=== PATIENT | female | born 1960 | race Caucasian/White ===

== ENCOUNTER 2017-06-30 22:59 | Observation (INO) | payer BC ==
[2017-06-30 23:26] LABS: Hematocrit 40 % (35-47); Hemoglobin 13.5 g/dl (12.0-16.0); Mean Corpuscular HGB Conc 33 g/dl (31-36); Mean Corpuscular Hemoglobin 31 pg (27-31); Mean Corpuscular Volume 92 fL (80-97); Mean Platelet Volume 9 um3 (7.4-10.4); Red Cell Distribution Width 14 % (10.5-15); White Blood Count 12.1 10^3/ul (3.5-10.8)
[2017-06-30 23:38] LABS: Alcohol < 10 mg/dL (<10)
[2017-06-30 23:40] LABS: ALT 14 U/L (7-52); AST 19 U/L (13-39); Albumin 3.6 g/dL (3.2-5.2); Alkaline Phosphatase 108 U/L (34-104); Anion Gap 8 mmol/L (2-11); BUN/Creatinine Ratio 17.7 (8-20); Blood Urea Nitrogen 17 mg/dL (6-24); CO2 Carbon Dioxide 24 mmol/L (22-32); Calcium 9.3 mg/dL (8.6-10.3); Chloride 105 mmol/L (101-111); EGFR Non-African American 59.9 (>60); Glucose 155 mg/dL (70-100); Potassium 4.1 mmol/L (3.5-5.0); Sodium 137 mmol/L (133-145); Total Protein 6.6 g/dL (6.4-8.9)
[2017-06-30 23:42] LABS: Troponin I 0.03 ng/mL (<0.04)
[2017-06-30] MEDS ORDERED: Thiamine IV* 100 MG/ML 2 ML VIAL IV ONE (23:53)
[2017-07-01 00:31] LABS: C Reactive Protein 4.15 mg/L (< 5.00)
[2017-07-01] MEDS ORDERED: Albuterol 2.5 MG/3 ML NEB.SOL* (0.083%) INH PRN (01:25)
[2017-07-01] MEDS ORDERED: LORazepam TAB(*) 0.5 MG PO PRN (01:27)
[2017-07-01] MEDS ORDERED: Piperacillin/Tazobac ADVAN(*) 3.375 GM in NS 0.9% 100 ML* 100 ML IVPB ONE (01:32)
[2017-07-01] MEDS: Furosemide IV* 10 MG/ML VIAL (40 MG) IV SCH ×2 (01:41→08:06)
[2017-07-01] MEDS ORDERED: Aspirin Low Dose CHEW TAB* 81 MG PO ONE (01:49)
[2017-07-01] MEDS ORDERED: Zosyn per Pharmacy* NOTE FOLLOW UP SCH (02:00)
[2017-07-01] MEDS ORDERED: Iodixanol* (CONTRAST) 320 MG/ML 100 ML SDV IV ONE (03:13)
[2017-07-01 04:26] LABS: Benzodiazepine Urine Screen None Detected (None Detect)
--- NOTE | 2017-07-01 04:30 | HP ---
ADDENDUM NOW INCLUDED ON THIS REPORT CC: Dr. Chavez, Cardiology in [place]; [facility] * HISTORY AND PHYSICAL: DATE OF ADMISSION: 07/01/17 PRIMARY CARE PROVIDER: Provider from [facility]. The patient does not remember the name. CHIEF COMPLAINT: Shortness of breath. HISTORY OF PRESENT ILLNESS: Please note that the patient is a very poor historian, has complained that she has aphasia due to "mini-stroke." To me it appears more related to psychologic problem. She has a scuttle like voice and usually answers in one word sentences. The patient stated that she had been having shortness of breath and gasping for air "for the past two and a half weeks." She could not really explain why she is here today and did not come earlier. She states that she gained approximately 15 pounds. She noted that she has severe coronary artery disease and CHF and she usually is short of breath with minimal exertion. For the past two and a half weeks, she also had been having right-sided pleuritic chest pain. She thought that she was actually in the hospital in [place] where she usually goes to and then she was somewhat upset when she noted that the ambulance brought her to [place]. She stated that she is in the process of moving to [place] and her is right now on the way to their apartment to move their belongings over to [place]. She also stated that her CPAP mask was broken and she had a no CPAP for the past several days, which also made her "not being able to breathe at night." The patient was noted to be not hypoxic, but significantly dyspneic. On CT of the chest, has fluffy infiltrates in the entire left lung and right lower lung that could be either atypical infection or pneumonia. She is going to be placed on overnight observation. PAST MEDICAL HISTORY: Very limited due to the patient being not a great historian. Also, I am in the process of trying to obtain medical records from [facility]. 1. The patient stated that she has a pacemaker and the phlebotomy support tech who is taking care of her cardiac issues is Dr. Chavez from [place]. 2. The patient also stated that she has a history of coronary artery disease and her heart is "very bad." 3. History of coronary artery bypass grafting x3 in 2014 in [place]. 4. History of hypertension. 5. Dyslipidemia. 6. Obstructive sleep apnea. 7. From the patient's psychiatric history in 2007, she was hospitalized and was diagnosed with schizophrenia as well as psychosis. The patient has a history of PTSD and dissociative identity disorder. The patient has a history of remote suicidal attempts. PAST SURGICAL HISTORY: The patient also has a history of status post hysterectomy remotely. MEDICATIONS: Include "blood pressure pill." Furosemide, which she thinks she takes 40 mg daily, but she is not sure and a medication that starts with "juan" for anxiety on as needed basis. ALLERGIES: No known drug allergies. FAMILY HISTORY: Positive for possible heart disease, but her mother and her father in their 50s and the patient really does not know their medical problems. SOCIAL HISTORY: The patient lives with her . She has history of smoking two packs per day and she quit 6 years. She has a history of 60-pack year smoking. She denies any alcohol or drug use, but she has a history of remote alcoholism. REVIEW OF SYSTEMS: Please see history of present illness. In addition to the above mentioned, the patient stated that her legs get swollen when she walks a lot and then it gets better at night. Her symptoms of right-sided pleuritic chest pain as well as shortness of breath and paroxysmal nocturnal dyspnea had been ongoing for two and a half weeks that coincides with approximately 15- pound weight gain. She denies any productive cough. She denies any fevers. All the remaining 12 systems were reviewed with the patient, who once again is a poor and not reliable historian and were otherwise negative. PHYSICAL EXAMINATION GENERAL: The patient is a very pleasant 57-year-old female, who is in no acute distress. The patient is alert, awake and oriented x3, once again is a very poor historian. VITAL SIGNS: Blood pressure of 152/93, heart rate of 88 and regular, respiratory rate 20, oxygen saturation 96% on 2 L of oxygen nasal cannula, temperature of 97.4. HEENT: Head: Atraumatic, normocephalic. Eyes: Pupils are equal, reactive to light and accommodation. Oropharynx clear. Mucosa moist. NECK: Supple. No JVD, no bruits bilaterally. RESPIRATORY: Dry crackles in entire left lung and right lower lobe. No wheezes , no rhonchi. ABDOMEN: Soft and nontender. Bowel sounds are present in all 4 quadrants. EXTREMITIES: There is trace bilateral ankle edema. Pulses are 2+ bilaterally. No clubbing or cyanosis. NEURO EVALUATION: Speech clear, but "scuttle like." Cranial nerves II through XII are grossly intact. Motor strength is 5/5 bilaterally. PSYCHIATRIC EVALUATION: Oriented x3 with no evidence of anxiety or depression. DIAGNOSTIC STUDIES/LAB DATA: Show D-dimer of 597. White blood cell count of 12.1, hemoglobin of 13.5, hematocrit of 40, and platelets of 307. Sodium was 137, potassium 4.1, chloride 105, carbon dioxide 24, BUN 17, creatinine 0.96. Liver function tests were unremarkable. Brain natriuretic peptide was 691. C- reactive protein was 4.1. Troponin of 0.03. Procalcitonin level is pending at the time of dictation. The patient's brain CT was grossly unremarkable. Chest CT I reviewed by myself and once again has ground-glass opacities in most of the left lung and right lower lung. The official report is still pending. The patient's EKG is pending at the time of dictation. ASSESSMENT AND PLAN: 1. Dyspnea for two and a half weeks in a patient with a history of congestive heart failure, who also had weight gain. She is on diuretics at home. The patient has somewhat nonspecific ground-glass opacities in bilateral lungs, but I suspect this is probably due to congestive heart failure. Unfortunately, we do not have the medical records from [facility] at this point, which I requested. At this point, the patient is going to be treated for congestive heart failure with Lasix 40 mg on a daily basis. Daily weights are going to be also obtained. I will obtain transthoracic echocardiogram in the morning. 2. In regards to the possibility of an infectious process, the patient's CRP is rather low. Procalcitonin level is pending. For the time being, I will treat the patient empirically with Zosyn. If her procalcitonin level is negative, Zosyn should be discontinued. Flu test is also pending at the time of dictation. 3. In regards to the patient's obstructive sleep apnea, the patient is going to be placed on CPAP at nightly in the hospital. 4. The patient has history of anxiety and I am going to place her on Ativan on a p.r.n. basis. Unfortunately, I am not sure which medication she is taking at home and I will ask nursing to confirm medication reconciliation in the morning when the patient's pharmacy is open. 5. The patient's code status is full and her surrogate is her . 6. For DVT prophylaxis, the patient is going to be placed on heparin subcutaneously. TIME SPENT: Approximately 75 minutes were spent on the admission of this patient, more than half that time was spent [id number] with the patient during the interview and physical exam. ADDENDUM: Please note that the imaging certified professional ergonomist called and corrected the patient's review of the CT scan of the brain, which shows now left frontoparietal small subacute CVA. Due to that, the patient will be continued on baby aspirin daily. She also is going to be placed on a cardiac diet. Physical therapy is going to be assessing the patient in the morning. I will also ask occupational therapy and neurology consult to see the patient in consultation. A transthoracic echocardiogram is going to be obtained with a bubble study. The patient is also going to be placed on neuro checks. So far, the patient's only neurological deficit is change in speech. No other abnormalities were noted. [id number]/[facility] #: [id number]/[facility] #: [id number] SHAWNA
--- NOTE | 2017-07-01 05:27 | HP ---
HISTORY AND PHYSICAL: ADDENDUM: Please note that the imaging called and corrected the patient' s review of the CT scan of the brain, which shows now left frontoparietal small subacute CVA. Due to that, the patient, before making the diagnosis placed on baby aspirin daily, which is going to be continued. She also is going to be placed on a cardiac diet. Physical therapy is going to be assessing the patient in the morning. I will also ask occupational therapy and neurology consult to see the patient in consultation. A transthoracic echocardiogram is going to be obtained with a bubble study. The patient is also going to be placed on neuro checks. So far, the patient's only neurological deficit is change in speech. No other abnormalities were noted. [id number]/[facility] #: [id number] SHAWNA
[2017-07-01] MEDS: Heparin VIAL(*) 5000 UNITS/ML VIAL (FIVE THOUSAND) SUBCUT SCH ×3 (06:11→21:55)
[2017-07-01 06:15] LABS: HDL Cholesterol 60.3 mg/dL
[2017-07-01 06:17] LABS: Troponin I 0.03 ng/mL (<0.04)
--- NOTE | 2017-07-01 07:47 | RAD ---
HISTORY: Dyspnea, chest pain COMPARISONS: April 29, 2014 VIEWS: 1: frontal portable view of the chest at 11:21 PM. The patient is obliqued to the left. FINDINGS: LINES AND TUBES: The left-sided pacemaker is noted CARDIOMEDIASTINAL SILHOUETTE: The cardiomediastinal silhouette is normal for portable technique. PLEURA: The costophrenic angles are sharp. No pleural abnormalities are noted. LUNG PARENCHYMA: There is patchy alveolar opacification of the left mid and lower lung field and right lower lung field ABDOMEN: The upper abdomen is clear. There is no subphrenic gas. BONES AND SOFT TISSUES: No bone or soft tissue abnormalities are noted. IMPRESSION: PATCHY BILATERAL CONSOLIDATION. RECOMMEND FOLLOW-UP UNTIL RESOLUTION TO EXCLUDE UNDERLYING PULMONARY PARENCHYMAL PATHOLOGY.
--- NOTE | 2017-07-01 07:51 | RAD ---
HISTORY: Speech difficulty COMPARISONS: April 17, 2007 TECHNIQUE: Multiple contiguous axial CT scans were obtained of the head without intravenous contrast. FINDINGS: HEMORRHAGE/INFARCT: There is focal hypoattenuation of the left temporoparietal. Elsewhere, there is no hemorrhage or acute infarct. Cortex and subcortical white matter consistent with subacute nonhemorrhagic infarct MASSES/SHIFT: There is no mass or shift. EXTRA-AXIAL SPACES: There are no extra-axial fluid collections. SULCI AND VENTRICLES: The sulci and ventricles are normal in size and position for the patient's stated age. CEREBRUM: As noted above, there is hypoattenuation in a cytotoxic edema pattern of the left parietal lobe extending into the left posterior temporal lobe consistent with subacute nonhemorrhagic infarct. BRAINSTEM: There are no focal parenchymal abnormalities. CEREBELLUM: There are no focal parenchymal abnormalities. VESSELS: The vessels are grossly normal. PARANASAL SINUSES: The paranasal sinuses are clear. ORBITS: The orbits are unremarkable. BONES AND SOFT TISSUE: No bone or soft tissue abnormalities are noted. OTHER: None IMPRESSION: LEFT TEMPOROPARIETAL SUBACUTE NONHEMORRHAGIC INFARCT. PRELIMINARY FINDINGS WERE COMMUNICATED TO DR. PRICE BY DR. BOYD AT APPROXIMATELY 1:50 AM ON JULY 01, 2017
--- NOTE | 2017-07-01 07:55 | RAD ---
HISTORY: Dyspnea, abnormal chest x-ray COMPARISONS: Chest x-ray dated June 30, 2017, CT dated October 06, 2005 TECHNIQUE: Multiple contiguous axial CT scans of the chest were obtained without intravenous contrast. Coronal and sagittal multiplanar reformations are also submitted for review. FINDINGS: The study is limited by the lack of intravenous contrast. This limits evaluation of the solid organs and vasculature. NECK AND THYROID: There is a 1.8 cm right thyroid nodule. CHEST WALL: There is no lower cervical, axillary, or supraclavicular lymphadenopathy by size criteria. No left-sided pacemaker is noted. HEART AND PERICARDIUM: Coronary and valvular cardiac calcifications are noted. AORTA AND PULMONARY VASCULATURE: There is calcification of the thoracic aorta. The pulmonary vasculature is unremarkable. MEDIASTINUM: There is no mediastinal lymphadenopathy by size criteria. SELINA: There is no hilar lymphadenopathy by size criteria. AIRWAY AND ESOPHAGUS: The airway is unremarkable, without endobronchial filling defect. The esophagus is grossly normal. LUNG PARENCHYMA: There is patchy ground glass opacification throughout the left lung and within the right lower lobe with patchy nonsolid nodular groundglass opacification within the right upper and middle lobe. PLEURA: There is a small right pleural effusion UPPER ABDOMEN: There are stable low-attenuation hepatic parenchymal lesions most consistent with hepatic cysts. BONES AND SOFT TISSUES: Degenerative changes are noted. Patient is status post median sternotomy. OTHER: None. IMPRESSION: 1. DIFFUSE AIRSPACE DISEASE THROUGHOUT THE LEFT LUNG AND RIGHT LOWER LOBE, AND TO LESSER EXTENT WITHIN THE RIGHT MIDDLE AND UPPER LOBE. RECOMMEND FOLLOW-UP UNTIL RESOLUTION TO EXCLUDE UNDERLYING PULMONARY PARENCHYMAL PATHOLOGY. 2. SMALL RIGHT PLEURAL EFFUSION. 3. ATHEROSCLEROSIS. 4. RIGHT THYROID NODULE. RECOMMEND CORRELATION WITH DEDICATED IMAGING OF THE THYROID IN THE NONACUTE SETTING.
--- NOTE | 2017-07-01 08:18 | RAD ---
HISTORY: Shortness of breath COMPARISONS: Noncontrast CT chest dated July 01, 2017 TECHNIQUE: Multiple contiguous axial CT scans of the chest were obtained after the administration of nonionic intravenous contrast, timed to the pulmonary arterial phase of contrast enhancement.. Coronal and sagittal multiplanar reformations are also submitted for review. FINDINGS: NECK AND THYROID: Again noted is a right thyroid nodule. CHEST WALL: There is no lower cervical, axillary, or supraclavicular lymphadenopathy by size criteria. A left-sided pacemaker is noted. HEART AND PERICARDIUM: The heart is unremarkable. AORTA AND PULMONARY VASCULATURE: There is no pulmonary arterial filling defect to suggest pulmonary embolism. There is no linear filling defect within the aorta to suggest aortic dissection. There is atherosclerosis of the thoracic aorta. MEDIASTINUM: There is no mediastinal lymphadenopathy by size criteria. SELINA: There is no hilar lymphadenopathy by size criteria. AIRWAY AND ESOPHAGUS: The airway is unremarkable, without endobronchial filling defect. The esophagus is grossly normal. LUNG PARENCHYMA: Again noted is diffuse ground less opacification of the left lung and right lower lobe with more focal nonsolid nodular groundglass opacification of the right upper middle lobe. PLEURA: There is a small right pleural effusion. UPPER ABDOMEN: Again noted are low attenuation hepatic parenchymal lesions most consistent with cysts. BONES AND SOFT TISSUES: The patient is status post median sternotomy. Degenerative changes are noted. OTHER: None. IMPRESSION: 1. NO PULMONARY ARTERIAL FILLING DEFECT TO SUGGEST PULMONARY EMBOLISM. 2. AGAIN NOTED IS BILATERAL AIRSPACE DISEASE. RECOMMEND FOLLOW-UP UNTIL RESOLUTION TO EXCLUDE UNDERLYING PULMONARY PARENCHYMAL PATHOLOGY. 3. SMALL RIGHT PLEURAL EFFUSION. 4. RIGHT THYROID NODULE
[2017-07-01] MEDS ORDERED: Aspirin Low Dose CHEW TAB* 81 MG PO SCH (09:00)
--- NOTE | 2017-07-01 11:31 | PN ---
Subjective Date of Service: 07/01/17 Interval History: Ms. Oviedo states feeling better since arrival. She attributes this to having oxygen and a working CPAP machine. She states that her home CPAP machine has been broken for several weeks but that she believes that a new machine is to be delivered early next week. She also notes difficulty in finding words and communicating which started the weekend after Thanksgiving and was associated with a sharp headache to the left side of her head. She reports having aphasia and difficulty speaking in the past which seems to have been related to previous stroke. She describes a complicated cardiac history including CABG at [place] and numberous heart attacks. She says that she does not have schizophrenia but has borderline personality disorder, agoraphobia, and depression. Objective Active Medications: Acetaminophen (Tylenol Tab*) 650 mg PO Q4H PRN Albuterol (Ventolin 2.5 Mg/3 Ml Neb.Rin*) 2.5 mg INH [id number] AWAKE PRN Aspirin (Aspirin Low Dose Tab*) 81 mg PO DAILY SHAYAN Furosemide (Lasix Iv*) 40 mg IV DAILY SHAYAN Heparin Sodium (Porcine) (Heparin Vial(*)) 5,000 units SUBCUT Q8HR SHAYAN Lorazepam (Ativan Tab(*)) 0.5 mg PO Q6H PRN Vital Signs: Temp Pulse Resp BP Pulse Ox 97.5 F 76 16 137/70 98 07/01/17 07:58 07/01/17 07:58 07/01/17 07:58 07/01/17 07:58 07/01/17 07:58 Oxygen Devices in Use Now: Nasal Cannula, CPAP Appearance: Female sitting up in bed in NAD Eyes: No Scleral Icterus Ears/Nose/Mouth/Throat: Mucous Membranes Moist Neck: Trachea Midline Respiratory: Symmetrical Chest Expansion and Respiratory Effort, Clear to Auscultation Cardiovascular: NL Sounds; No Murmurs; No JVD, No Edema Abdominal: NL Sounds; No Tenderness; No Distention Lymphatic: No Cervical Adenopathy Extremities: No Edema Skin: No Rash or Ulcers Neurological: Alert and Oriented x 3, NL Muscle Strength and Tone Nutrition: Taking PO's Result Diagrams: 06/30/17 23:14 06/30/17 23:14 Microbiology and Other Data: . Assess/Plan/Problems-Billing Assessment: Ms. Oviedo is a 57 yo female with an unclear PMH of schizophrenia, psychosis, PTSD, and dissociative identify disorder with unconfirmed self-report of CAD, pacemaker, HTN, MENG who was admitted on 06/30/17 with shortness of breath found to have a subacute left temporoparietal CVA. - Patient Problems (1) SOB (shortness of breath) Comment: - CTA chest with diffuse, patchy airspace disease. No pulmonary embolism. - Minimal leukocytosis without fever or cough. CRP 4 and procalcitonin negative. Do not suspect pneumonia, antibiotics discontinued. - Echo shows EF 25-30%, unknown baseline. ? CHF, continue lasix. (2) CVA (cerebral vascular accident) Comment: - Patient reports word finding difficulties which are new. - Subacute CVA, left temporoparietal region. - Appreciate neurology consult. - Continue aspirin 325mg. Start atorvastatin. - CTA head and neck to be completed when patient can have contrast dye (had CTA chest on admission). MRI pending (pacemaker info on chart). - ? cardioembolic source given severely enlarged left atrium, continue telemetry. No PFO observed on echo. - Continue PT/OT/ST. (3) CHF (congestive heart failure) Comment: - EF 25-30% today with multiple regional wall motion abnormalities, consistent with reported history of CABG and multiple MIs. - Attempting to obtain records from [place] and [facility]. - Continue lasix for now. (4) CAD (coronary artery disease) Comment: - Asymptomatic, Trops negative. - Hx CABG, attempting to obtain records from [facility]. (5) Hypertension Comment: - BP 130-150s - Continue lasix, resume lisinopril. (6) MENG (obstructive sleep apnea) Comment: - Will need to confirm that patient has CPAP at home prior to discharge. (7) DVT prophylaxis Current Visit: Yes Status: Acute Code(s): [id number] - SNOMED Code(s): 576249849 Comment: - Heparin SQ. (8) Full code status Comment: Status and Disposition: OBV. Anticipate discharge to home when medically stable.
--- NOTE | 2017-07-01 11:42 | ECHO ---
Amended Report Patient: ALEC JUSITCE [facility] Rec#: [id number] : 1960 Date: 07/01/2017 Age: 57y Height: 157.5 cm / 62.0 in Weight: 68 kg / 149.9 lbs Sex: F BSA: 1.69 Room#: 453 Admit Date#: 07/01/2017 Type: Inpatient Referring: Dalila Ramos MD Reading: Pedro Luis Dorado DO Associate Artistic Director: Katharine Savage RN RDCS Transthoracic Echocardiogram Indication: CHF, CVA BP: 143/82 HR: 70 Rhythm: Paced Findings History: CAD, CABG, CHF, former heavy smoker, remote ETOH use Technical Comments: The study quality is fair. The study is technically limited due to the patient's smoking history. Completed at 1050. Left Ventricle: The left ventricular chamber size is mildly dilated. There are multiple regional wall motion abnormalities. There is severely decreased left ventricular systolic function. The estimated ejection fraction is 25-30%. Ventricular septal wall motion has a post-operative appearance. and/or related to RV pacing The left ventricular diastolic filling pattern is consistent with pseudonormalization. Left Atrium: The left atrium is moderate to severely dilated. Right Ventricle: The right ventricular chamber size and systolic function are within normal limits. A pacemaker wire is visualized in the right ventricle. Right Atrium: The right atrial cavity size is normal. A pacemaker wire is visualized in the right atrium. The bubble study is negative. A patent foramen ovale is not demonstrated with color Doppler and agitated contrast. Aortic Valve: The aortic valve is trileaflet. The aortic valve leaflets are mildly thickened. There is no evidence of aortic regurgitation. There is no evidence of aortic stenosis. Mitral Valve: The mitral valve leaflets are mildly thickened. There is moderate to severe mitral regurgitation. Mechanism not well appreciated on transthoracic imaging. Appears to be combination of function/secondary related to LV dilation and systolic dysfunction with apical tethering of the mitral leaflets and also ischemic related due to posterior leaflet restriction related to an akinetic inferolateral wall. There is no evidence of mitral stenosis. Pulmonary vein flow reversal is present. Tricuspid Valve: The tricuspid valve leaflets are normal. There is mild tricuspid regurgitation. There is evidence of mild pulmonary hypertension. There is no tricuspid stenosis. Pulmonic Valve: The pulmonic valve structure is not well visualized. There is trace to mild pulmonic regurgitation. There is no pulmonic stenosis. Pericardium: There is no significant pericardial effusion. Aorta: There is no dilatation of the ascending aorta. The aortic arch is not well visualized. There is no dilation of the aortic root. Pulmonary Artery: The main pulmonary artery is not well visualized. Venous: The venous system is not well visualized. The inferior vena cava is not visualized. Contrast: Normal saline was used as contrast for the bubble study. Images 1 and 2. Conclusions The left ventricular chamber size is mildly dilated. There is severely decreased left ventricular systolic function. The estimated ejection fraction is 25-30%. The left atrium is moderate to severely dilated. The right ventricular chamber size and systolic function are within normal limits. A pacemaker wire is visualized in the right ventricle. There is mild tricuspid regurgitation. There is evidence of mild pulmonary hypertension. There is at least moderate to severe mitral regurgitation as described within the report. Agitated saline (bubble study) is negative No prior studies available for comparison at time of interpretation. Measurements Name Value Normal Range RVDdMajor (2D) 2.9 cm (2.2 - 4.4) RAd ISD 4CH 4.8 cm (3.4 - 4.9) RA (A4C)W 4.1 cm (2.9 - 4.6) IVSd (2D) 1 cm (0.6 - 1) LVPWd (2D) 0.8 cm (0.6 - 1) LVIDd (2D) 5.3 cm (3.6 - 5.4) LVIDs (2D) 4.8 cm - LV FS (2D) 9 % (25 - 45) Aortic Annulus 1.9 cm (1.4 - 2.6) Ao root diameter (2D) 2.8 cm (2.1 - 3.5) Ascending Ao 3 cm (2.1 - 3.4) LA dimension (AP) 2D 4.4 cm (2.3 - 3.8) LAd ISD 4CH 5.4 cm (2.9 - 5.3) LA ISD 4CH W 4.6 cm (2.5 - 4.5) Name Value Normal Range LA ESV SP 4CH (A/L) 94 ml - LA ESV SP 2CH (A/L) 53 ml - LA ESV BP (A/L) 75 ml - LA ESV BP (A/L) index 44.4 ml/m2 - LA ESV SP 4CH (MOD) 89 ml - LA ESV SP 2CH (MOD) 50 ml - Name Value Normal Range MV E-wave Vmax 0.75 m/sec - MV deceleration time 193 msec - MV A-wave Vmax 0.97 m/sec - MV E:A ratio 0.77 ratio - LV septal e' Vmax 0.03 m/sec - LV lateral e' Vmax 0.06 m/sec - LV E:e' septal ratio 25 ratio - LV E:e' lateral ratio 12.5 ratio - Name Value Normal Range AV Vmax 1.4 m/sec - AV VTI 25 cm - AV peak gradient 7.84 mmHg - AV mean gradient 4.2 mmHg - LVOT Vmax 0.94 m/sec - LVOT VTI 17 cm - LVOT peak gradient 3.5 mmHg - LVOT mean gradient 2.1 mmHg - DOI (VTI) 0.68 ratio - DOI (Vmax) 0.67 ratio - Name Value Normal Range MR Vmax 5.44 m/sec - MR VTI 188 cm - MR volume (PISA) 43 ml - MR flow (PISA) 137 ml/sec - MR ERO 0.24 cm2 - MR PISA radius 0.8 cm - MR alias Vmax 32 cm/sec - Name Value Normal Range TR Vmax 2.9 m/sec - TR peak gradient 34 mmHg - RAP 8 mmHg - RVSP 42 mmHg - Name Value Normal Range PV Vmax 0.96 m/sec -
[2017-07-01] MEDS: Acetaminophen TAB* 325 MG PO PRN ×2 (13:07→19:36)
[2017-07-01] MEDS: Aspirin TAB* 325 MG PO SCH (16:53)
[2017-07-01] MEDS: Atorvastatin* 80 MG TAB PO SCH (16:53)
--- NOTE | 2017-07-01 19:16 | CONS ---
CONSULTATION REPORT: DATE OF CONSULT: 07/01/17 PATIENT OF: Dr. Chavez in [place] and [facility]. Patient of Vaishnavi Zhen. HISTORY OF PRESENT ILLNESS: This is a 57-year-old right-handed woman, who I am asked to evaluate for stroke. She notes that roughly 7 or 8 years ago, she had a stroke which caused her a significant aphasia which improved but left her significant residual. Two weeks ago, she had another event where her speaking became much poor than her baseline both in terms of things being a word salad and she would use word salad specifically. She had difficulty finding words and trouble understanding things, but the word finding difficulty was more than her understanding. This happened 2 weeks ago. It has not gotten worse but it has not gotten much better from then, she came in. She did not seek medical attention for this worsening of her speech. She came in yesterday because of shortness of breath. PAST MEDICAL HISTORY: Of note, she has significant coronary artery disease and has had coronary artery bypass graft x3 in 2013. She has a pacemaker. She has a history of hypertension, dyslipidemia, obstructive sleep apnea. She has a history of PTSD and schizophrenia and remote suicide attempts. She is status post hysterectomy and triple bypass. MEDICATIONS: She is on an antihypertensive, furosemide. ALLERGIES: She has no known drug allergies. FAMILY HISTORY: There is a family history for possible heart disease. SOCIAL HISTORY: She lives with her and had a history of smoking 2 packs per day but quit 6 years ago. She has a history of remote alcoholism. REVIEW OF SYSTEMS: Negative in all 14 spheres other than the HPI. She has had no weakness or numbness or visual symptoms with this most recent change of aphasia. She does have shortness of breath, nocturnal dyspnea and pleuritic chest pain. PHYSICAL EXAM: Temperature 97.5, pulse 76, respiratory rate 16, blood pressure 137/70. She is alert and oriented x3, but had difficulty with naming objects and she had substitution. When she named something wrong, she would know it and get upset and she had probably intact comprehension although at times she was confused with some instructions and then had to think about them and go forward. Cranial nerves II through XII are normal including there was no clear facial weakness. There was no visual field deficits to fingers. Motor exam revealed normal tone and strength. There is no pronator drift. She is mildly clumsy of the fine motor in either hand. Finger to nose was intact. Sensation grossly intact to light touch, with limited cooperation with this. Reflexes were 2+ on the right, 2 on the left. Toes were equivocal but downgoing. Chest : Clear. Cardiovascular: Regular rate and rhythm. Abdomen: Soft with positive bowel sounds. DIAGNOSTIC STUDIES/LAB DATA: I reviewed her CT scan, which showed a left temporoparietal infarct that was possibly subacute. She had a transthoracic echo which showed decreased ejection fraction of 25% to 30%, left atrium which is moderate to severely dilated. There was negative bubble study. Labs include normal CMP other than creatinine 0.96, glucose 155. BNP was 691. Her LDL was 124. White count 12.1, platelets and hematocrit were normal. D- dimer was 557. There is no PT or PTT. Toxicology was negative. Chest and thoracic CT scan showed a small right pleural effusion, right thyroid nodule, bilateral air space disease noted. IMPRESSION: I discussed with Annmarie that her aphasia is most likely secondary to stroke and by her history it seems like she had an additional stroke within the past 2 weeks or so in addition to the one that she had several years ago. This seems to be in the same distribution. With her smoking history and her hyperlipidemia, she would be at risk for atherosclerotic disease and it would be reasonable to get a CTA of her head and neck. She had a CTA today of her chest and thorax, this will need to await given the dye load. Of more concern is whether this could be cardioembolic since this would change her therapy from antiplatelet to anticoagulation. She is at risk for cardioembolic given her dilatation of her left atrium. There is no clear history of atrial fibrillation but it makes sense to touch base with her document management consultant tomorrow both to make sure that she can get an MRI scan despite her pacer, she said that she could double check this history. If she has other evidence of stroke in other areas besides this one, I would consider anticoagulating and if she has history of atrial fibrillation, she would need to be anticoagulated depending on what the MRI scan shows, the timing of the anticoagulation would need to occur not in the immediate timeframe of stroke but it sounds like the most recent stroke occurred a couple of weeks ago and so if we anticoagulate, it should be able to be done in the near future once the decision is made to anticoagulate based on these further workup discussed. I would for now have her on a statin to treat her hyperlipidemia and have her on aspirin [address] Martines will be assuming neurological care tomorrow and may have further recommendations depending on what further we find with her case. Thank you for sharing her care. [id number]/[facility] #: [id number] SHAWNA
[2017-07-02] MEDS: Heparin VIAL(*) 5000 UNITS/ML VIAL (FIVE THOUSAND) SUBCUT SCH ×3 (05:28→23:13)
[2017-07-02 05:49] LABS: Hematocrit 38 % (35-47); Hemoglobin 12.9 g/dl (12.0-16.0); Mean Corpuscular HGB Conc 34 g/dl (31-36); Mean Corpuscular Hemoglobin 31 pg (27-31); Mean Corpuscular Volume 91 fL (80-97); Mean Platelet Volume 9 um3 (7.4-10.4); Red Blood Count 4.14 10^6/ul (4.0-5.4); Red Cell Distribution Width 14 % (10.5-15); White Blood Count 5.4 10^3/ul (3.5-10.8)
[2017-07-02 05:52] LABS: Comments Flag Yes
[2017-07-02 06:02] LABS: Calcium 8.7 mg/dL (8.6-10.3); EGFR African American 73.5 (>60); EGFR Non-African American 57.1 (>60); Potassium 3.5 mmol/L (3.5-5.0)
[2017-07-02] MEDS ORDERED: Iodixanol* (CONTRAST) 320 MG/ML 100 ML SDV IV ONE (08:07)
--- NOTE | 2017-07-02 09:12 | RAD ---
HISTORY: Subacute infarct COMPARISONS: CT dated July 01, 2017 TECHNIQUE: Multiple contiguous axial CT scans were obtained of the head and neck After the administration of nonionic intravenous contrast timed to the systemic arterial phase of contrast enhancement. Coronal and sagittal multiplanar reformations are submitted for review. Multiple 3-D maximum intensity projection reconstructions are also submitted for review. FINDINGS: CTA NECK: AORTIC ARCH: There is a bovine configuration, with the left common carotid artery originating from the brachiocephalic trunk. There is no ostial or proximal stenosis of the cephalic great vessels. There is atherosclerosis of the aorta and proximal great vessels. RIGHT VERTEBRAL ARTERY: There is loss of contrast enhancement at the level of the V4 segment of the right vertebral artery. LEFT VERTEBRAL ARTERY: The left vertebral artery is patent along its course, without stenosis. DOMINANCE: The left vertebral artery is dominant. RIGHT COMMON CAROTID ARTERY: The right common carotid artery is patent. The right carotid bifurcation occurs at C3-C4 RIGHT INTERNAL CAROTID ARTERY: There is circumferential calcified atheromatous plaque of the right carotid bifurcation resulting in approximately 70% short segment right internal carotid artery stenosis by NASCET criteria RIGHT EXTERNAL CAROTID ARTERY: The right external carotid artery is unremarkable. LEFT COMMON CAROTID ARTERY: The left common carotid artery is patent. The left carotid bifurcation occurs at C3-C4 LEFT INTERNAL CAROTID ARTERY: There is calcified atheromatous disease of the left carotid bifurcation, without left internal carotid artery stenosis by NASCET criteria. LEFT EXTERNAL CAROTID ARTERY: The left external carotid artery is unremarkable. VENOUS CIRCULATION: The venous system is unremarkable. SALIVARY GLANDS: The parotid glands, submandibular glands, sublingual glands are normal. NASAL CAVITY/NASOPHARYNX: The nasal cavity and nasopharynx are normal. ORAL CAVITY/OROPHARYNX: The oral cavity is obscured by streak artifact from dental amalgam. The visualized oral cavity and oropharynx are unremarkable. LARYNGEAL APPARATUS/HYPOPHARYNX: There is a 1.2 x 0.8 x 1.2 cm submucosal nodule of the false cord on the right, not crossing midline. UPPER AIRWAY/UPPER ESOPHAGUS: The visualized upper airway and esophagus are normal. LUNG APICES: There is centrilobular emphysematous change. THYROID GLAND: There is a 1.9 cm right thyroid nodule LYMPH NODES: There is no lymphadenopathy by size criteria. BONES AND SOFT TISSUES: Mild degenerative changes are noted. A left-sided pacemaker is noted. CTA HEAD: INTRACRANIAL CIRCULATION: As noted above, there is loss of contrast enhancement of the V4 segment of the right vertebral artery. There is a low origin of the right posterior inferior cerebral artery which appears patent. Elsewhere, there is no aneurysm, vascular malformation, occlusion, or stenosis of the visualized intracranial circulation.. The anterior communicating artery complex is clear. Bilateral posterior communicating arteries are identified. VENOUS CIRCULATION: The venous system is unremarkable. PERFUSION: There is no obvious parenchymal perfusion deficit. HEMORRHAGE/INFARCT: Again noted is hypoattenuation consistent with subacute nonhemorrhagic infarct of the left parietal lobe and superior temporal lobe. Also, there is no hemorrhage or acute infarct. MASSES/SHIFT: There is no mass or shift. EXTRA-AXIAL SPACES: There are no extra-axial fluid collections. SULCI AND VENTRICLES: The sulci and ventricles are normal in size and position for the patient's stated age. CEREBRUM: As noted above, there is an area of cytotoxic edema in the left parietal lobe extending to the left superior posterior temporal lobe consistent with subacute nonhemorrhagic infarct. BRAINSTEM: There are no focal parenchymal abnormalities. CEREBELLUM: There are no focal parenchymal abnormalities. PARANASAL SINUSES: The paranasal sinuses are clear. ORBITS: The orbits are unremarkable. BONES AND SOFT TISSUE: No bone or soft tissue abnormalities are noted. OTHER: There is no abnormal enhancement. IMPRESSION: 1. ATHEROSCLEROSIS. 2. THERE IS LOSS OF CONTRAST ENHANCEMENT OF THE DISTAL V4 SEGMENT OF THE RIGHT VERTEBRAL ARTERY, SUGGESTIVE OF DISTAL RIGHT VERTEBRAL ARTERY OCCLUSION VERSUS HIGH-GRADE STENOSIS. 3. THERE IS APPROXIMATELY 70% SHORT SEGMENT RIGHT INTERNAL CAROTID ARTERY STENOSIS BY NASCET CRITERIA. THERE IS NO LEFT INTERNAL CAROTID ARTERY STENOSIS BY NASCET CRITERIA. 4. THERE IS A 1.2 CM SUBMUCOSAL NODULE OF THE FALSE CORDS ON THE RIGHT. THE DIFFERENTIAL INCLUDES SUPRAGLOTTIC LARYNGEAL NEOPLASM. RECOMMEND CONSIDERATION FOR DIRECT VISUALIZATION AND TISSUE SAMPLING IF CLINICALLY INDICATED. 5. 1.9 CM RIGHT THYROID NODULE. RECOMMEND CONSIDER ADDITIONAL CORRELATION WITH REPEAT IMAGING OF THE THYROID. 6. AGAIN NOTED IS A SUBACUTE NONHEMORRHAGIC INFARCT OF THE LEFT TEMPOROPARIETAL REGION. CPT II Codes: 3100F
[2017-07-02] MEDS: Aspirin TAB* 325 MG PO SCH (09:17)
[2017-07-02] MEDS: Lisinopril TAB* 10 MG PO SCH (09:17)
[2017-07-02] MEDS: Furosemide IV* 10 MG/ML VIAL (40 MG) IV SCH (09:17)
--- NOTE | 2017-07-02 11:42 | PN ---
PROGRESS NOTE: DATE OF SERVICE: 07/02/17 LOCATION: She is currently in room 453, bed 1. PATIENT OF: Dr. Chavez in [place] and [facility]. SUBJECTIVE: Overnight, the patient had no new issues. She continues to have intermittent speech difficulties, but states that she is at baseline. She states that the reason that she came into the hospital was for her shortness of breath, but was not noticing any new speech problems at that time. She states that on or around , she developed an acute left-sided ice-pick type headache and subsequently had some worsening speech difficulties, but this has not worsened since that event. She was seen by Dr. Rascon yesterday, at that time she was stating that her speech will sometimes become more confused and jumbled and that she had "word salad." On admission to the hospital, she did have a CT of the head, which showed subacute left temporoparietal nonhemorrhagic infarct. In addition, she had a transthoracic echocardiogram that showed significant dysfunction including moderate to severely dilated left atrium, pacemaker wires visible, evidence of mild pulmonary hypertension, moderate to severe mitral regurg, agitated saline negative, ejection fraction 25 % to 30%, severely decreased left ventricular systolic dysfunction with a mildly dilated left ventricular chamber. She was admitted with shortness of breath and elevated D-dimer. CT of the chest and thorax showed no pulmonary artery filling defect to suggest pulmonary embolism. Bilateral airspace disease noted. Right pleural effusion noted. Right thyroid nodule noted. Head CTA was deferred at this point due to her IV contrast dye yesterday, but it is scheduled. Overnight, she has had no new issues. Continues to have intermittent speech difficulties, but otherwise feels better. She was apparently found with a handheld vaporizer and was told that this is a non- smoking facility and states that she has not been smoking. MEDICATIONS: She is on: 1. Tylenol 650 mg p.o. q.4 hours p.r.n. 2. Albuterol neb. 3. Aspirin 325 mg p.o. daily, which was increased from 81 mg on admission. 4. Lipitor 80 mg at bedtime added. 5. Furosemide. 6. Heparin for DVT prophylaxis. 7. Lisinopril 10 mg q.a.m. 8. Lorazepam 0.5 mg q.6 hours p.r.n. PHYSICAL EXAMINATION: Vital Signs: Temp 98.4, heart rate of 75, respiratory rate of 20, O2 sat 98% to 100%, blood pressure 143/77 to 130/69 to 133/66. In general, she is a well-nourished, well-developed female in no acute distress. She is pleasant, well dressed, well groomed. HEENT: She is normocephalic, atraumatic. Sclerae anicteric. Mucous membranes are moist. She has poor dentition. No dentures in place. Neck: Supple. No thyromegaly. No carotid bruits. Chest is clear to auscultation bilaterally. Cardiovascular: Regular rate and rhythm. Abdomen: Nontender. Extremities: No significant clubbing, cyanosis or edema. On neurologic exam, she is awake, alert, oriented x3. Her speech is fluent this morning. There is no significant dysarthria. There is no significant aphasia. She does have intact repetition. She at times had to think about what she was going to say, but was able to express herself fully. Cranial nerves II through XII are normal. Visual page intact. Motor Exam: She is spontaneously moving all extremities antigravity, 5/5 throughout. No dysdiadochokinesia or dysmetria noted. Sensation intact to light touch and pinprick. DTRs 2+ at the upper extremities bilaterally, 1+ at the patella bilaterally. Downgoing Babinski's bilaterally. LABORATORY DATA: Lab work this morning includes a basic metabolic panel that was normal except for creatinine of 1.0. CBC with diff was essentially normal. CTA of the head and neck pending. MRI of the brain is being considered. ASSESSMENT AND PLAN: Ms. Oviedo is a 57-year-old female with a significant past medical history for cardiovascular disease. Also a history of stroke in the past with some residual aphasia which waxes and wanes, history of pulmonary disease, history of pacemaker. No reported history of atrial fibrillation. History of smoking and hyperlipidemia. She presented with a severe acute onset headache around Thanksgiving, on the left side. Subsequently, she states that her speech worsened, but appears to be at baseline. She states it has not worsened recently, was admitted to the hospital for some lung issues but subsequently a CT of the head showed a subacute infarct which is likely new compared to her prior infarct in the same distribution. Her aspirin was increased to 325 mg p.o. daily yesterday. Lipitor was added. CTA of the head and neck is pending. MRI is being considered, although she has a pacemaker, which is apparently MRI compatible. We are attempting to obtain some records from an outside facility and I will speak with her primary attending later today. If MRI did show a new stroke versus evidence of embolic stroke, this would suggest a possibility of underlying cardioembolic source given her low ejection fraction and her cardiac history. Certainly, atrial fibrillation is a concern as well. At this point, we will continue the aspirin, but would consider the MRI of the brain, followup CTA of the head and neck. Consider KENA if there is any evidence of embolic stroke. I would certainly recommend an outpatient long-term monitor to look for any evidence of atrial fibrillation and should she have any evidence of atrial fibrillation or any evidence of cardiac thrombus, then full strength anticoagulation would be a consideration. For now, we will continue her current care. We will continue to follow her closely and make further recommendations as necessary. [id number]/[facility] #: [id number] SHAWNA
[2017-07-02] MEDS: Atorvastatin* 80 MG TAB PO SCH (16:47)
--- NOTE | 2017-07-02 19:13 | PN ---
Subjective Date of Service: 07/02/17 Interval History: Ms. Oviedo states that she is feeling better today. She feels much better on cpap and with oxygen but she knows that much of her trouble is related to drama and stress at home. She denies any new complaint. She still has word finding difficulties. She is unable to stay in the hospital for an MRI as she needs to leave tomorrow to care for her . Objective Active Medications: Acetaminophen (Tylenol Tab*) 650 mg PO Q4H PRN Albuterol (Ventolin 2.5 Mg/3 Ml Neb.Rin*) 2.5 mg INH [id number] AWAKE PRN Aspirin (Aspirin Tab*) 325 mg PO DAILY SHAYAN Atorvastatin Calcium (Lipitor*) 80 mg PO 1700 SHAYAN Furosemide (Lasix Iv*) 40 mg IV DAILY SHAYAN Heparin Sodium (Porcine) (Heparin Vial(*)) 5,000 units SUBCUT Q8HR SHAYAN Lisinopril (Prinivil Tab*) 10 mg PO QAM SHAYAN Lorazepam (Ativan Tab(*)) 0.5 mg PO Q6H PRN Vital Signs: Temp Pulse Resp BP Pulse Ox 97.4 F 65 16 112/58 100 07/02/17 16:16 07/02/17 16:16 07/02/17 16:16 07/02/17 16:16 07/02/17 16:16 Oxygen Devices in Use Now: Nasal Cannula Appearance: Female sitting up in bed in NAD Eyes: No Scleral Icterus Ears/Nose/Mouth/Throat: Mucous Membranes Moist Neck: Trachea Midline Respiratory: Symmetrical Chest Expansion and Respiratory Effort, Clear to Auscultation Cardiovascular: NL Sounds; No Murmurs; No JVD, No Edema Abdominal: NL Sounds; No Tenderness; No Distention Lymphatic: No Cervical Adenopathy Extremities: No Edema Skin: No Rash or Ulcers Neurological: Alert and Oriented x 3, NL Muscle Strength and Tone Nutrition: Taking PO's Result Diagrams: 07/02/17 05:33 07/02/17 05:33 Microbiology and Other Data: . Assess/Plan/Problems-Billing Assessment: Ms. Oviedo is a 57 yo female with an unclear PMH of schizophrenia, psychosis, PTSD, and dissociative identify disorder with unconfirmed self-report of CAD, pacemaker, HTN, MENG who was admitted on 06/30/17 with shortness of breath found to have a subacute left temporoparietal CVA. - Patient Problems (1) SOB (shortness of breath) Comment: - Much improved. - Suspect largely related to anxiety. Patient does much better with cpap at night however. She feels better on oxygen but does not qualify for it at home at this point. - CTA chest with diffuse, patchy airspace disease. No pulmonary embolism. - Minimal leukocytosis without fever or cough. CRP 4 and procalcitonin negative. Do not suspect pneumonia, antibiotics discontinued. - Echo shows EF 25-30%, unknown baseline. ? CHF, continue lasix. (2) CVA (cerebral vascular accident) Comment: - Patient reports word finding difficulties which are new. - Subacute CVA, left temporoparietal region. - Appreciate neurology consult. Recommends patient remain in hospital for MRI but she refuses as she needs to get home to care for her . - Recommend outpatient MRI to determine if there have been other strokes to suggest a cardioembolic source and the need for chronic anticoagulation. 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 Chavez and possibly Dr. Martines outpatient. Also recommend holter monitoring. - Continue aspirin 325mg. Start atorvastatin. (3) CHF (congestive heart failure) Comment: - EF 25-30% today with multiple regional wall motion abnormalities, consistent with reported history of CABG and multiple MIs. - Attempting to obtain records from [place] and [facility]. - Resume home meds. (4) CAD (coronary artery disease) Comment: - Asymptomatic, Trops negative. - Hx CABG, attempting to obtain records from [facility]. (5) Hypertension Comment: - BP 130-150s - Continue lasix, resume lisinopril. (6) MENG (obstructive sleep apnea) Comment: - Patient has obtained cpap for home. (7) DVT prophylaxis Current Visit: Yes Status: Acute Code(s): [id number] - SNOMED Code(s): 951449240 Comment: - Heparin SQ. (8) Full code status Comment: Status and Disposition: OBV. Plan for discharge to home tomorrow.
[2017-07-03] MEDS: Heparin VIAL(*) 5000 UNITS/ML VIAL (FIVE THOUSAND) SUBCUT SCH (06:25)
[2017-07-03] MEDS: Lisinopril TAB* 10 MG PO SCH (08:27)
[2017-07-03 08:28] VITALS: BP 117/62
[2017-07-03] MEDS: Aspirin TAB* 325 MG PO SCH (08:28)
[2017-07-03] MEDS: Furosemide IV* 10 MG/ML VIAL (40 MG) IV SCH (08:28)
--- NOTE | 2017-07-03 15:07 | DS ---
CC: Dr. Chavez, Cardiology, in [place]. * HOSPITAL MEDICINE DISCHARGE SUMMARY: DATE OF ADMISSION: 07/01/17. DATE OF DISCHARGE: 07/03/17 ATTENDING PHYSICIAN: Dr. Corey Peters * (dictation provided by Vaishnavi Fontaine NP ). PRIMARY DIAGNOSES: 1. Subacute cerebrovascular accident to the left temporoparietal area. 2. Shortness of breath, improved on CPAP. SECONDARY DIAGNOSES: 1. Coronary artery disease with history of multiple stents and CABG. 2. History of cerebrovascular accident. 3. History of pacemaker. 4. Hypertension. 5. Dyslipidemia. 6. Obstructive sleep apnea. MEDICATIONS: At the time of discharge: 1. Lidocaine patches p.r.n. 2. Torsemide 40 mg p.o. daily. 3. Lisinopril 10 mg p.o. q.a.m. 4. Duloxetine as prescribed (dose unavailable). 5. Pravastatin 10 mg p.o. daily (new prescription). 6. Aspirin 325 mg p.o. daily (new prescription). HOSPITAL COURSE: Ms. Oviedo is a 57-year-old female with a past medical history of coronary artery disease with CABG and peripheral vascular disease as well as a history of CVA in the past, who presented to the hospital on 07/01/17 with concerns for shortness of breath. Please see the dictated H and P from Dr. Dalila Ramos for complete details. In brief, the patient reported being under extreme distress at home with the recent move. She also reported that her CPAP was not working. She stated that she felt that she gained approximately 15 pounds. In the emergency room, she had a chest x-ray which is read as follows: "Patchy bilateral consolidation". Chest CT showed diffuse air space disease throughout the left lung and right lower lobe and to a lesser extent within the right middle and upper lobe." The radiologist also noted that the patient had a right thyroid nodule and recommended correlation with dedicated imaging of the thyroid in an nonacute setting. Surprisingly, she had a CT of the brain, which showed left temporoparietal subacute nonhemorrhagic infarct. On further questioning, Ms. Oviedo noted that she has significant coronary disease with CABG and multiple stents. Per her recollection, she had a stroke associated with one of her cardiac interventions that resulted in aphasia. She had recovered her speech, but then on Thanksgiving she had had a severe left- sided headache and thereafter again had had trouble fighting words, which persisted until the time of this admission. For workup of her stroke, she went on to have a transthoracic echocardiogram, which showed an ejection fraction of 25% to 30%. The left atrium is moderately to severely dilated. There is moderate to severe mitral regurgitation. She was also seen in consultation by Neurology. I refer you to their notes for complete details. A head and neck CTA was obtained, which showed "there is loss of contrast enhancement of the distal P4 segment of the right vertebral artery suggestive of distal right vertebral artery occlusion versus high- grade stenosis. There is approximately 70% short segment right internal carotid artery stenosis by HAQ criteria. There is no left internal carotid artery stenosis by HAQ criteria. There is 1.2 cm SUBMUCOSAL NODULE OF THE FALSE CORDS ON THE RIGHT. Differential includes supraglottic laryngeal neoplasm. Recommend consideration for direct visualization and tissue sampling if clinically indicated. A 1.9 cm right thyroid nodule, recommend to consider additional correlation with repeat imaging of thyroid. In terms of shortness of breath, Ms. Oviedo responded well to having CPAP machine available. Her CPAP machine has not been working at home. She says that the CPAP is now available. She has also preferred to be on oxygen while here, but she did not qualify for oxygen as her O2 saturation was 98% with mobility on room air. I suspect that a significant portion of her shortness of breath is related to her anxiety. I also think that she had a component of shortness of breath was related to CHF, which would explain the CT findings suggestive of diffuse infiltrates. She was diuresed while inpatient with intravenous lasix and her breathing continued to improve. In terms of the infiltrates, I have a low suspicion for pneumonia as she had normal WBC, no fever, and a normal CRP. She did have elevated BNP, which again will suggest this was related to CHF. I would recommend that she follow up outpatient for a repeat CT scan of the chest in approximately 6 weeks to ensure that this these infiltrates have resolved. Ms. Oviedo is medically stable for discharge to home at her request. We requested that Ms. Oviedo remain in the hospital for further workup including an MRI of the brain to further characterize the extent of her stroke and whether its distribution was highly suggestive of cardioembolic disease and would warrant full anticoagulation. 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 Ms. Oviedo is adamant that she would like to be discharged today as she is concerned about caring for her . She feels that her health has deteriorated over the past few years and that she is not interested in any aggressive interventions except as arranged in consultation with Dr. Chavez. I have reviewed the risks of a future stroke and the possibility that this laryngeal nodule is contributing to her shortness of breath but she does not wish to remain here for further workup at this time. Ms. Oviedo is medically stable for discharge to home at her request to follow up with Dr. Chavez for further workup of her shortness of breath and CVA. DISPOSITION: Home. DIET: Low fat, low salt. ACTIVITY: As tolerated. FOLLOWUP PLANS: 1. Patient has been strongly encouraged to obtain a new PCP near where she recently has moved. 2. Follow up with Dr. Chavez in one to two weeks regarding this acute hospitalization. 3. The patient has been recommended to follow up with Neurology for MRI of the brain as noted above. The patient has been provided with the number for Dr. Martines from [facility]. 4. The patient has thyroid nodule with recommendation for followup outpatient . 5. Again, please note that the patient has a 1.2 cm submucosal nodule of the false cords on the right and that the differential could include a neoplasm and tissue sampling is recommended. TIME SPENT: Approximately 75 minutes was spent in the discharge of this patient , more than half that time was spent with the patient at the bedside reviewing the events leading up to this hospitalization, performing the physical examination, and reviewing the plan of care. VAISHNAVI FONTAINE, DANILO [id number]/[facility] #: [id number] SHAWNA
== END 2017-07-03 10:30 | disposition home or self-care (01) ==
LOC: ED 22:59 → MEDTELE 07-01 01:14
PROVIDERS: ADMIT Internal Medicine; ATTEND Internal Medicine
DX: I63.9 Cerebral infarction, unspecified (principal); R06.02 Shortness of breath; G47.33 Obstructive sleep apnea (adult) (pediatric); Z95.0 Presence of cardiac pacemaker; I25.10 Atherosclerotic heart disease of native coronary artery without angina pectoris; Z95.1 Presence of aortocoronary bypass graft; I10 Essential (primary) hypertension; E78.5 Hyperlipidemia, unspecified; Z87.891 Personal history of nicotine dependence; F43.10 Post-traumatic stress disorder, unspecified; F20.9 Schizophrenia, unspecified; J90 Pleural effusion, not elsewhere classified; E04.1 Nontoxic single thyroid nodule; I70.90 Unspecified atherosclerosis; Z95.5 Presence of coronary angioplasty implant and graft
CPT/HCPCS: 36415; 70450; 70496; 70498; 71010; 71250; 71275; 80048; 80053; 80061; 80307; 80320; 83880; 84145; 84484; 85025; 85379; 86140; 87502; 93005; 93306; 94660; 96374; 96375; 96376; 99284; A9270-GY; G0378; G0480; G9159-GN-CH; G9160-GN-CH; G9161-GN-CH; G9162-GN-CH; G9163-GN-CH; G9164-GN-CH; J1644; J1940; J2543; Q9967